=== PATIENT | female | born 1960 | race Hispanic/Latino ===

== ENCOUNTER 2016-06-15 15:24 | Outpatient (CLI) | payer OTHER, MEDICARE | END 2016-06-15 15:25 | disposition home or self-care (01) | LOC: LABHHL 15:24 | PROVIDERS: ATTEND Specialist | DX: N63 Unspecified lump in breast (principal) | CPT/HCPCS: 88305; 88361 ==

== ENCOUNTER 2016-06-20 14:52 | Outpatient (CLI) | payer OTHER | END 2016-06-20 14:53 | disposition home or self-care (01) | LOC: LABHHL 14:52 | PROVIDERS: ATTEND Surgery | DX: D36.0 Benign neoplasm of lymph nodes (principal) | CPT/HCPCS: 88305 ==

== ENCOUNTER 2016-06-27 14:21 | Outpatient (CLI) | payer OTHER, MEDICARE ==
--- NOTE | 2016-06-27 15:28 | Ultrasound Report ---
BILATERAL BREAST ULTRASOUND: 06/27/16 14:21:00 CLINICAL: Newly diagnosed right breast cancer. She has cochlear implants and could not have an MRI. COMPARISON: 06/14/16 bilateral diagnostic mammogram. FINDINGS: Ultrasound of the right breast(including all four quadrants and the retroareolar area) was performed and demonstrated a single irregular solid hypoechoic mass at 11 o'clock 3 cm from nipple. It measures 1.5 x 1.4 x 1.1 cm and corresponds to the known cancer. A complex hematoma at 10 o'clock 3 cm from the nipple measures 2.5 x 1.4 x 2.1 cm. No other mass, cyst or shadowing. Ultrasound of the right axilla demonstrated a single suspicious lymph node measuring 2.7 x 1.2 x 1.5 cm. Asymmetric cortical thickening of 8 mm. Ultrasound of the left breast (including all four quadrants and the retroareolar area) was performed and demonstrated normal fibroglandular and fatty structures. No mass, cyst or shadowing. IMPRESSION: 1. A 1.5 cm known right breast cancer and no additional suspicious lesion of either breast. 2. A single suspicious right axillary lymph node with asymmetric cortical thickening of 8 mm. 3. A 2.5 cm post biopsy hematoma of the right breast. 4. Negative left breast. BI-RADS 6--Known Cancer -
== END 2016-06-27 14:22 | disposition home or self-care (01) ==
LOC: SPVWC 14:21
PROVIDERS: ATTEND Surgery
DX: C50.411 Malignant neoplasm of upper-outer quadrant of right female breast (principal); N64.89 Other specified disorders of breast; Z98.82 Breast implant status

== ENCOUNTER 2016-07-06 12:29 | Outpatient (CLI) | payer OTHER, MEDICARE ==
--- NOTE | 2016-07-06 14:26 | Ultrasound Report ---
ULTRASOUND GUIDED NEEDLE CORE BIOPSY OF A RIGHT AXILLARY LYMPH NODE WITH CLIP PLACEMENT : 07/06/16 CLINICAL: Newly diagnosed right breast cancer with a suspicious right axillary lymph node. Recent biopsy Dr. Angelo was negative and the report describes no lymphoid tissue. COMPARISON :06/27/16 FINDINGS: The procedure was explained to the patient and informed consent was obtained. Ultrasound demonstrated the suspicious lymph node with a localizer clip in the mid portion of the lymph node. The skin in the axilla was prepped with Betadine and anesthetized with 1% lidocaine. Ultrasound guided needle core biopsy of the thickest portion of the lymph node was performed through a small dermatotomy using 2% lidocaine with epinephrine for deep anesthesia and a 18-gauge Achieve biopsy device. 3 samples were obtained and placed in formalin. A clip was deployed within the lymph node. Hemostasis was achieved with minimal pressure and a sterile dressing was applied. The patient tolerated the procedure well and there were no apparent complications. She was discharged in good condition and was given instructions for wound care and followup. IMPRESSION: Uncomplicated ultrasound-guided needle core biopsy of a right lymph node with clip placement.
== END 2016-07-06 12:30 | disposition home or self-care (01) ==
LOC: SPVWC 12:29
PROVIDERS: ATTEND Surgery
DX: C50.411 Malignant neoplasm of upper-outer quadrant of right female breast (principal); N63 Unspecified lump in breast
CPT/HCPCS: 38505; 76942; 88305; A4648

== ENCOUNTER 2016-07-20 10:35 | Observation (INO) | payer OTHER, MEDICARE ==
--- NOTE | 2016-07-18 09:59 | Anesthesia Consultation ---
Anesthesia Consult and Med Hx Date of service: 07/18/16 - Airway Anesthetic Teeth Evaluation: Poor (broken /chipped) ROM Head & Neck: Inadequate Mental/Hyoid Distance: Inadequate Mallampati Class: Class III Intubation Access Assessment: Possibly Difficult - Pulmonary Exam CTA: Yes (blbs clear no wheeze) - Cardiac Exam Cardiac Exam: RRR - Pre-Operative Health Status ASA Pre-Surgery Classification: ASA3 Proposed Anesthetic Plan: General - Pulmonary Hx Smoking: Yes (CIGARETTES 1 PPD X 26 YRS, QUIT 3 YRS AGO) Hx Asthma: Yes (last used during this past witner) Hx Sleep Apnea: Yes - Cardiovascular System Hx Hypertension: Yes (FOR 5+ YRS, NO MEDS - DAVE ENCARNACION NP) - Central Nervous System Hx Neuromuscular Disorder: Yes (chronic pain pt with LLE RSD;spinal stimulator placed + pain meds) Hx Back Pain: Yes (HERNIATED DISC) Hx Psychiatric Problems: Yes (anxiety) - Endocrine Hx Non-Insulin Dependent Diabetes: Yes - Other Systems Hx Cancer: Yes (RIGHT BREAST, DX: 05/2016) Hx Obesity: Yes
[~2016-07-20 10:35] MED LIST: NACL 0.9% 1000 ML 1,000 ML IV SCH; NEURONTIN PO NR; PEPCID IV NR; PEPCID PO NR; SUBLIMAZE IV NR; TRANSDERM-SCOP TD NR; VERSED IV NR; ZOFRAN IV PRN
[2016-07-20] MEDS ORDERED: DIPRIVAN 10 MG/ML IV ONE (10:52)
--- NOTE | 2016-07-20 11:31 | Anesthesia Day of Surgery ---
Anesthesia Day of Surgery - Day of Surgery Patient Examined: Yes Patient H&P Reviewed: Yes Patient is NPO: Yes
[2016-07-20] MEDS ORDERED: TRANSDERM-SCOP TD NR (12:00)
[2016-07-20] MEDS ORDERED: MARCAINE-EPI 0.25%-1:200,000 INFILTRATI ONE (12:18)
[2016-07-20] MEDS ORDERED: DECADRON ONE ×2 (12:19→13:33)
[2016-07-20] MEDS ORDERED: XYLOCAINE 1% 20 mL ONE (12:19)
[2016-07-20] MEDS ORDERED: ANCEF ONE (12:23)
[2016-07-20] MEDS ORDERED: BACITRACIN ONE (12:24)
[2016-07-20] MEDS ORDERED: GARAMYCIN ONE (12:26)
[2016-07-20] MEDS ORDERED: NACL 0.9% 50 ML ONE (12:27)
[2016-07-20] MEDS: VERSED IV NR ×2 (12:32→12:37)
[2016-07-20] MEDS ORDERED: BLOXIVERZ ONE (13:33)
[2016-07-20] MEDS ORDERED: XYLOCAINE MPF 2% ONE (13:33)
[2016-07-20] MEDS ORDERED: ZEMURON IV ONE (13:33)
[2016-07-20] MEDS ORDERED: ROBINUL ONE (13:33)
[2016-07-20] MEDS ORDERED: ZOFRAN ONE ×2 (13:33→18:23)
[2016-07-20] MEDS ORDERED: ePHEDrine SULFATE ONE (13:36)
[2016-07-20] MEDS ORDERED: NACL P/F VIAL (10 ML) 10 ML ONE (13:37)
[2016-07-20] MEDS ORDERED: WATER FOR IRRIG STERILE IR ONE (13:57)
[2016-07-20] MEDS ORDERED: NACL 0.9% 1000 ML 1,000 ML ONE ×4 (14:24→19:36)
[2016-07-20] MEDS ORDERED: ANCEF IV ONE (14:48)
[2016-07-20] MEDS ORDERED: BACITRACIN IR ONE ×2 (14:48)
[2016-07-20] MEDS ORDERED: NACL 0.9% IR ONE (14:48)
--- NOTE | 2016-07-20 16:17 | Post Anesthesia Evaluation ---
- Post Anesthesia Evaluation Patient Participated: Yes Airway Patent: Yes Stable Respiratory Function: Yes Nausea/Vomiting: No Temp > 96.8F: Yes Pain Manageable: Yes Adequeate Hydration: Yes Anesthesia Complications: No Block Receding Appropriately: Not Applicable Patient on Ventilator: No
--- NOTE | 2016-07-20 16:36 | Operative Report ---
Operative Report Operative Report: Date of procedure: 07/20/2016 Pre-operative diagnosis: Right breast cancer of the upper outer quadrant Post-operative diagnosis: Same Procedure name(s): Right total mastectomy with sentinel lymph node biopsy and left total mastectomy Surgeon: Louise Angelo M.D. Anesthesia: Gen. Findings: Known right breast cancer the 10 o'clock position 1-2 cm from the nipple. 3 sentinel lymph nodes identified and negative for malignancy on frozen Estimated blood loss: 50cc Specimens: Bilateral total mastectomy and right sentinel lymph node biopsy Disposition: Plastic surgery continued with bilateral tissue photographic artist placement Indications for operative procedure: This is a 55-year-old lady with newly diagnosed right breast cancer upper outer quadrant. Recommendations were for a right total mastectomy versus center mastectomy given close proximity of cancer to nipple. Patient wished to proceed with a right total mastectomy and prophylactic left total mastectomy. She was consented for the above procedure. Procedure in detail: Anesthesia placed bilateral pectoral muscle blocks. The patient was then taken to the operating room and was laid supine. Gen. anesthesia was administered. The right nipple was injected with sulfur colloid isotope. Bilateral breast and right arm were prepped and draped in the normal sterile operative fashion. Known breast cancer was identified at the 10 o' clock position 1-2 cm from the nipple with area appropriately marked as well using the ultrasound. First began with performing of the left total mastectomy. Typical mastectomy incision was made with a 10 blade knife with dissection taken down to the subcutaneous tissues. Began with raising of the superior flap to the level of the clavicle taken down posteriorly to the pectoralis muscle, followed by raising of the lateral flap to the latissimus muscle, followed by raising of the inferior flap to the level of the inframammary fold taken down posteriorly to the pectoralis muscle, and raising of the medial flap to the level of the sternum taken down posteriorly to the pectoralis muscle. The mastectomy was appropriately removed from the pectoralis muscle with the aid of Bovie cautery without incident. Attention was then taken towards the right total mastectomy. Began with raising of the superior flap to the level of the clavicle and posterior to the pectoralis muscle, followed by raising of the medial flap to the level of sternum and posteriorly to the pectoralis muscle and laterally to the level of the latissimus dorsi taken down posteriorly. The gamma probe was inserted into the axilla with identification of sentinel lymph node. 3 sentinel lymph nodes were identified that were sent to pathology with frozen findings negative for malignancy. Then continued with the raising of the inferior flap to the level of the inframammary fold taken down posteriorly to the pectoralis muscle. The mastectomy was removed from the pectoralis muscle without incident. Both mastectomy specimens were sent to pathology. Dr. Lloyd then continued with the performance of bilateral tissue photographic artist placement.
[2016-07-20] MEDS ORDERED: PROVENTIL IH PRN (17:13)
[2016-07-20] MEDS ORDERED: ATIVAN PO PRN (17:13)
[2016-07-20] MEDS ORDERED: BENADRYL PO PRN (17:18)
[2016-07-20] MEDS ORDERED: PERCOCET 5/325 PO PRN (17:18)
[2016-07-20] MEDS ORDERED: SODIUM CHLORIDE FLUSH SYRINGE 10 ML IV PRN (17:18)
[2016-07-20] MEDS ORDERED: ZOFRAN IV PRN (17:18)
[2016-07-20] MEDS ORDERED: LACTATED RINGERS 1,000 ML IV SCH (18:00)
[2016-07-20] MEDS: DILAUDID IV PRN ×4 (18:15→18:55)
[2016-07-20] MEDS ORDERED: DILAUDID ONE ×2 (18:17→18:41)
[2016-07-20] MEDS ORDERED: VERSED ONE (18:37)
[2016-07-20] MEDS ORDERED: VERSED IV ONE (18:49)
[2016-07-20] MEDS: TORADOL IV SCH (21:46)
[2016-07-20] MEDS: COLACE PO SCH (21:47)
[2016-07-20] MEDS: ANCEF/NS 1 GM/50 ML 1 GM/50 ML BAG IV SCH (21:49)
--- NOTE | 2016-07-20 23:07 | Operative Report ---
PREOPERATIVE DIAGNOSES: 1. Personal history of breast cancer. 2. Acquired deformity of bilateral breasts. POSTOPERATIVE DIAGNOSES: 1. Personal history of breast cancer. 2. Acquired deformity of bilateral breasts. PROCEDURE: Bilateral immediate breast reconstruction with tissue expanders and acellular dermal matrix. SURGEON: Dr. Timothy Lloyd. SUPERVISOR [employer] INS[employer]CTION: MEE Salinas. ANESTHESIA: General endotracheal tube anesthesia. DRAINS: BECKY x 2. SPECIMENS: None. COMPLICATIONS: None. ESTIMATED BLOOD LOSS: Less than 20 mL. IMPLANT DEVICES: 1. Bilateral Barrington Artoura 600 mL tissue expanders filled to 150 mL intraoperative. 2. Lattice acellular dermal matrix (AdMatrix 8 x 16 cm x 2). INDICATIONS: The patient was diagnosed with breast cancer and has elected to undergo a bilateral mastectomy as performed by Dr. Angelo as a separate procedure. We discussed options for reconstruction both immediate and delayed and ultimately she decided to proceed with bilateral tissue medical transcriber and acellular dermal matrix breast reconstruction. She understands that breast reconstruction is a staged procedure and additional procedures will be necessitated. Nature of the surgery, technical aspects, typical recovery period, and potential risks involved were discussed fully including, but not limited to postop bleeding, infection, pronounced scar, hematoma or seroma formation, areas of paresthesias or numbness, asymmetry (expected), poor healing or dehiscence, capsular contracture, failure to achieve artistic goals, need for implant removal, revision or future surgery. DESCRIPTION OF PROCEDURE: The patient was already anesthetized. Dr. Angelo had completed a bilateral mastectomy with a right-sided sentinel node dissection. Both breasts were treated in the same way. The pockets and flaps were inspected and they appeared to be of adequate thickness and viability. A subpectoral pocket was developed under direct vision by incising the inferior portion of each pectoralis major muscle with electrocautery. Each pocket and the operative field was irrigated with copious amounts of triple antibiotic solution comprised of Ancef, gentamicin, and bacitracin. Next a thawed and triply washed sheet of lattice AdMatrix ADM was oriented trimmed to the appropriate size and inset into the lower pole of each reconstructed breast. The inferior aspect was sewn to the chest wall with interrupted 0 PDS. The superior border was sewn to the inferior border of the pectoralis major muscle with a combination of running and interrupted 0 Vicryl. A deep 10 flat BECKY drain was placed and a superficial 7 mm flat BECKY drain was placed exiting on each side through separate stab incisions and sewn in place with 2-0 silk. Each pocket was irrigated copiously again and an empty Barrington Artoura 600 mL tissue medical transcriber was placed beneath the ADM and pectoralis major muscle. Laterally, the ADM was sewn down to the chest wall, thereby compartmentalizing the reconstruction pocket from the remainder of the breast laterally. Closure was then facilitated after meticulous hemostasis was achieved with a running 0 Vicryl, subcutaneous tissue plane, 3-0 Monocryl at the level of the deep dermis in an interrupted manner and then a running 4-0 Monocryl suture subcuticularly. DermaFlex skin glue was placed at the surface. The patient had tolerated the procedure well and was extubated and transferred to the recovery area in stable condition. JOB# [id number] /[place]
[2016-07-21] MEDS: PERCOCET 5/325 PO PRN ×2 (02:32→07:57)
[2016-07-21] MEDS: TORADOL IV SCH ×2 (04:05→10:17)
[2016-07-21] MEDS: ANCEF/NS 1 GM/50 ML 1 GM/50 ML BAG IV SCH (06:08)
--- NOTE | 2016-07-21 07:30 | Admit Criteria Form ---
Admission Criteria Documentation: AMBULATORY SURGERY EXCEPTION CRITERIA Ambulatory Surgery Exception Criteria ( Place 'X' for any and all applicable criteria): Surgery or procedure performed on ambulatory basis may require inpatient stay for[A] ANY ONE of the following(1)(2)(3)(4)(5)(6)(7)(8)(9): [X] I. A preoperative situation, condition, or finding that warrants inpatient stay as indicated by ANY ONE of the following: [] a) Inpatient care needed because of severity of a disease or condition rather than the surgery (eg, severe cardiac or respiratory disease, severe infection) (15) (16 ) (17) (18) [] b) Emergent procedure (eg, angioplasty for acute ischemia)(19) [] c) Complex surgical approach or situation as indicated by ANY ONE of the following(3): [] i) Open approach needed instead of usual endoscopic, transcatheter, or other less invasive procedure [] ii) Difficult approach because of previous operation [] iii) Airway monitoring required after open neck procedures(20)(21) [] iv) Large mass requiring unusually extensive dissection [] v) Additional complicating feature requiring inpatient care (eg, drain management)(22(23): [X] d) Major surgery in a pt with high anesthetic risk as indicated by ANY ONE of the following (2)(3)(5)(7)(8): [X] i) ASA risk class III or higher (severe systemic disease impairing function) [D] [] ii) Advanced age (eg, older than 85 years)(14)(24) [] iii) Symptomatic heart failure(25) [] iv) Symptomatic asthma or COPD(8)(21) [] v) Morbid obesity with hemodynamic or respiratory problems(20)( 21)(26)(27) [] vi) Obstructive sleep apnea(20)(21) [] vii) Former premature infants who are younger than 60 weeks [] viii) High risk for severe postoperative abnormalities (eg, severe postoperative hypocalcemia after parathyroidectomy for severe hyperparathyroidism)(27)( 28) [] ix) Unstable angina(25) [] e) Drug-related risk requiring inpatient stay as indicated by ANY ONE of the following(5)(10)(14)(32)(33) [] i) Procedure requires discontinuing drugs or other therapy (eg , antiarrhythmic medication, antiseizure medication), which necessitates inpatient observation or treatment.(18)(31) [] ii) Major surgery and high risk drug use as indicated by ANY ONE of the following: [] 1) Active abuse of cocaine or similar drug [] 2) Monoamine oxidase inhibitor use [] 3) Other drug identified as posing risk [] f) Inadequate outpatient care situation as indicated by ANY ONE of the following(5)(10)(14)(32)(33) [] i) Patient lives remote from medical facility and procedure has urgent complication potential, and temporary nearby residence cannot be arranged [] ii) Patient will have postprocedure incapacitation and inadequate assistance at home, or alternative level of care cannot be arranged. [] iii) Patient will have long general anesthesia or procedure side effect resolution time, and competent person to stay with patient on first postoperative night at home or alternative level of care cannot be arranged. []iv) Other inadequate outpatient situation that cannot be handled by other means [] II. A perioperative event, condition, or finding that warrants inpatient stay as indicated by ANY ONE of the following (1)(2)(3): [] a) Inadequate physiologic recovery: cardiovascular, respiratory, or hemodynamic status not normal or near preoperative baseline(18) [] b) Hemodynamic instability [] c) Patient not alert with near normal or baseline mental status [] d) Temperature not normal or as expected and not appropriate for outpatient treatment of condition [] e) Ambulatory or appropriate activity level status not yet achieved post procedure [E](34)(35)(36) [] f) Operative site not appropriate (eg, unexpected or excessive drainage or bleeding) [] g) Postoperative effects not resolved or adequately managed (eg, significant pain or vomiting not appropriate for outpatient or next level of care)(10)(12) [] h) Complicating features requiring inpatient care as indicated by ANY ONE of the following(37): [] i) Severe complications of procedure (eg, bowel injury, airway compromise, vascular injury,severe hemorrhage) [] ii) Extensive (eg, dissection far beyond usual scope of procedure ) or prolonged (eg, 120 minutes beyond usual) surgery needed requiring inpatient postoperative care [] iii) Conversion to an open or complex procedure that requires inpatient care (eg, open vs laparoscopic cholecystectomy, abdominal vs vaginal hysterectomy)(38) [] iv) Comorbid condition or test result identified during or post procedure that requires inpatient care (7) [] v) Malignant hyperthermia(30) [] vi) Other complicating feature requiring inpatient care(22)(23) Inpatient stay may be needed until ALL of the following are present (1)(2)(3)(4) (5)(6)(10)(14)(33)(40): []a) Physiologic recovery: cardiovascular, respiratory, and hemodynamic status normal or near preoperative baseline []b) Hemodynamic stability []c) Patient alert, with near normal or baseline mental status []d) Temperature appropriate: patient afebrile or temperature appropriate for outpt treatment of condition []e) Activity level appropriate: ambulatory or appropriate activity level post procedure []f) Operative site appropriate as indicated by ALL of the following: []i) Site dry or with expected drainage []ii) Any blood noted is as expected for procedure. []g) Postoperative effects resolved or managed as indicated by ALL of the following: []i) Pain management appropriate for outpatient (or next level of) care(10) []ii) Minimal nausea and vomiting: if present, successfully treated with oral medication(12) []iii) Headache, dizziness, or drowsiness (if present) are mild. []h) Voiding status acceptable as indicated by ANY ONE of the following: []i) Voiding spontaneously []ii) No voiding but instructions given for follow-up in 6 to 8 hours []iii) Urinary catheter in place, and instructions given for follow-up []i) Complicating features requiring inpatient care manageable at a lower level of care(37) []j) Comorbid conditions manageable at a lower level of care(37) The original [employer] content created by [employer] has been revised. The portions of the content which have been revised are identified through the use of italic text or in bold, and [facility] [employer] has neither reviewed nor approved the modified material. All other unmodified content is copyright [employer]. Please see references footnoted in the original [employer] edition 2016 Admission Criteria Met: Yes
[2016-07-21] MEDS ORDERED: LaMICtal PO SCH (10:00)
[2016-07-21] MEDS ORDERED: CYMBALTA PO SCH (10:00)
--- NOTE | 2016-07-21 10:08 | Progress Note ---
Subjective Date of service: 07/21/16 Interval history: 1st POD after bilateral mastectomy with breast reconstruction Patient is in the bed, relatively comfortable. Pain is mostly controlled with pain meds. Ambulated well. No nausea or vomiting. No anesthesia complications Objective - Constitutional Vitals: Vital Signs - 12hr 07/21/16 07/21/16 07/21/16 01:20 05:40 08:50 Temperature 98.3 F 97.7 F 98.7 F Pulse Rate [ 77 76 Left] Pulse Rate [ 88 Right Radial] Respiratory 20 16 24 Rate Blood Pressure 135/77 141/74 [Left Arm] Blood Pressure 108/62 [Right Radial Artery] - Labs Labs: Abnormal lab results 07/20/16 Range/Units 11:53 POC Glucose 135 H (70-105)
[2016-07-21] MEDS: COLACE PO SCH (10:19)
[2016-07-21] MEDS ORDERED: PERCOCET 5/325 PO PRN (10:30)
[2016-07-21 15:37] VITALS: BP 150/76
== END 2016-07-21 16:00 | disposition home or self-care (01) ==
LOC: OR 10:35 → OB 17:18
PROVIDERS: ADMIT Plastic Surgery; ATTEND Surgery
DX: C50.411 Malignant neoplasm of upper-outer quadrant of right female breast (principal); I63.9 Cerebral infarction, unspecified; F17.210 Nicotine dependence, cigarettes, uncomplicated; J45.909 Unspecified asthma, uncomplicated; G47.30 Sleep apnea, unspecified; I10 Essential (primary) hypertension; E66.9 Obesity, unspecified; F41.9 Anxiety disorder, unspecified; G89.29 Other chronic pain
CPT/HCPCS: 64450; 82962; 88305; 88307; 88309; 88331; 88333; 88342; 96365; 96375; 96376; C1789; G0378; J0690; J1100; J1170; J1580; J1885; J2250; J2405; J2704; J3010; J7030; J7120; Q4116; J2710